=== PATIENT | male | born 1940 | race African-American/Black ===

== ENCOUNTER 2020-09-13 00:20 | Inpatient (IN) | payer MEDICARE ==
[~2020-09-13] VITALS: Ht 182.9 cm; Wt 72.6 kg
--- NOTE | 2020-09-13 02:20 | NUR ---
NURSE NOTES: Received patient from [facility] (Direct admit) under the care of Dr. Szymanski for the admitting dx. of CVA. Patient is noted NKA and full code status. Patient is tolerating RA, denies pain at this time. Will continue to monitor. Will let MD know and acquire admission orders.
[2020-09-13] MEDS ORDERED: Gadavist 7.5mMol/7.5ml vial IV PRN ×2 (03:00→15:00)
[2020-09-13 04:00] VITALS: BP 157/94
--- NOTE | 2020-09-13 05:00 | NUR ---
NURSE NOTES: Patient woke up verbalizing (with difficulty of expression) that he needed to use the bathroom to void. Assisted to use the urinal. Patient then went back to sleep. Will continue to monitor.
[2020-09-13] MEDS ORDERED: HydrALAZINE 10mg Tab ORAL PRN (05:30)
--- NOTE | 2020-09-13 07:15 | NUR ---
NURSE HAND-OFF REPORT: Important Events on Shift: Admitted to Unit Patient Status: Stable Diet: No added salt Pending Orders: Pending Results/Labs: Pending MD notification: Latest Vital Signs: Temperature 98.1 , Pulse 99 , B/P 157 /94 , Respiratory Rate 20 , O2 SAT 97 , , O2 Flow Rate . Vital Sign Comment: WNL EKG Rhythm: SR c 1st degree AVB Rhythm change?: N MD Notified?: - MD Response: Latest Porter Fall Score: 35 Fall Risk: Medium Risk Safety Measures: Call light Within Reach, Bed Alarm Zone 1, Side Rails Side Rails x3, Bed position Low and Locked. Fall Precautions: Yellow Socks Report given to DAILY Thurman.
[2020-09-13 08:00] VITALS: BP 117/66
[2020-09-13] MEDS: Aspirin Baby 81mg ORAL SCH (09:01)
[2020-09-13 12:00] VITALS: BP 162/82
[2020-09-13] MEDS: Vitamin D 1000 units Tab ORAL SCH (12:18)
--- NOTE | 2020-09-13 13:10 | NUR ---
PT NOTE Received MD order for PT evaluation. Attempted to see patient for PT however patient declining to participate, telling therapist "Go, I can do for myself." Olman AMBROSIO aware, present in patient's room. Will follow up tomorrow.
--- NOTE | 2020-09-13 13:35 | NUR ---
0730: Received from DAILY Dixon. Pt awake in bed at this time. Pt attempted to get out of bed to use bathroom. Pt redirected to lay in bed and was given urinal. Pt able to lift extremities. Pt not able to touch nose to finger. Pt also with trouble picking up items. Pt only oriented to person. Pt on RA. Bed in lowest position. Bed alarm on. Side rail x3. Call corrigan within reach. Will continue to monitor. 0800: ECHO being done at this time. 0900: Duplex being done at this time. 0930: nailhead puncher on the phone with Dr. Szymanski and instructed her to discuss that on transfer papers it stated pt was on Keppra and other meds. Awaiting orders at this time. 1050: Pt taken to MRI. 1200: Pt returned from MRI. Family updated. Pt given lunch. Pt assisted in using urinal. 1300: Pt refusing to do PT at this time. Telling PT to get out of room and he can "do for myself."
--- NOTE | 2020-09-13 13:44 | Diagnostic Imaging Report ---
Indication: Difficulty speaking, dementia Technique: sagittal T1 fast spin echo, axial T1 and T2 FLAIR PROPELLER, axial T2 FS PROPELLER, T2* GRE, axial diffusion weighted images, post contrast axial and coronal T1 FLAIR PROPELLER images. ADC and exponential ADC maps generated Comparison: Findings: . No abnormal areas of restricted diffusion to suggest acute infarction. No acute hemorrhage or edema. No mass effect nor midline shift. No abnormal contrast enhancement. There is age-related enlargement of the ventricles and extra axial CSF spaces. There is considerable high T2 signal in the periventricular deep white matter, likely on the basis of chronic microvascular ischemic change there is evidence of ethmoid and left maxillary sinus disease. Visualized orbits and sinuses are unremarkable. . Impression: Chronic and age-related changes Negative for acute intracranial bleed, mass effect, or contrast enhancing lesion
--- NOTE | 2020-09-13 13:53 | Diagnostic Imaging Report ---
Indication: Difficulty speaking, dementia Technique: Grayscale and duplex images of the bilateral extracranial carotid and vertebral arteries Comparison: none Findings: Bilaterally, grayscale and duplex images demonstrate hard and soft atherosclerotic plaquing resulting in less than 50% diameter narrowing. Normal Doppler flow velocities and waveforms. Patent bilateral vertebral arteries, antegrade flow note that the left subclavian artery could not be visualized Impression: Less than 50% diameter stenosis bilaterally
--- NOTE | 2020-09-13 14:37 | Consultation ---
Consult Note Consult Note Neurology Consultation Date of Consultation: 09/13/2020 Malathi MD: Dr Szymanski Reason For Referral: CVA HPI: This is a pleasant 80 year old AA Male patient transferred from an outside facility. He has PMH of CVA, Subdural hematoma s/p craniotomy in 2016, he was following a neurologist in [facility]. I called the daughter to obtain the information and reviewed the chart. His daughter Sheila states that she began to notice that he was having trouble speaking the 'right" words and was not making sense. We were consulted for concern of CVA, a CT head was done prior to arrival revealed white matter disease and a MRI brain was done here revealed no acute cva or hemorrhage. Past medical history: HLD, HTN, subdural hematoma, rectal bleeding. Past Surgical History: Colonoscopy, EGD, Craniotomy, Family History: Non contributory Socail history: No smoking tobacco, no alcohol and no drus use. ROS difficult to assess PE: General: Pt is sitting in bed no acute distress VS reviewed Neuro: The patient is awake Alert not able to tell me his name or place Comprehension is not intact, however he has the ability to follow some commands PERRLA, No facial droop, unable to stick his tongue out not able to follow some instructions Hearing is intact, He is able to follow instructions when asked to squeeze my hands and lift his extremities. Upper Bilat extremity Strength 2/10, Lower bilat lower extremity strenght is 2/10 Sensation difficult to do exam as patient is unable to tell me Gait not tested, no involuntary movements Lab: Reviewed in chart from prior outside hospital Imaging: MRI Brain reviewed Assessment and Diagnosis: 1. TIA --> MRI done does not show acute CVA --> Will order MRA head and neck --> continue ASA 81mg po daily --> discuss with daughter to see if he has been at baseline --> ST, PT, OT 2. History of Craniotomy for subdural hematoma --> was on keppra has been off keppra for 2 yrs. 3. HLD Thank you for allowing to us to participate in patients care plan of care was discussed with Dr. Alexei Phelps. Jie Aldrich NP Sep 13, 2020 14:37
[2020-09-13] MEDS ORDERED: Varibar Pudding 230ml MC PRN (15:30)
[2020-09-13] MEDS ORDERED: Varibar Thin Liquid powder 148gm MC PRN (15:30)
[2020-09-13] MEDS ORDERED: Varibar Honey 250ml MC PRN (15:30)
[2020-09-13] MEDS ORDERED: Varibar Nectar 240ml MC PRN (15:30)
[2020-09-13 16:00] VITALS: BP_SYST 163; BP_SYST 173; BP_DIAS 84; BP_DIAS 86
[2020-09-13] MEDS ORDERED: D5NS 1000ml IV ONE (16:07)
[2020-09-13 18:19] LABS: BASOPHILS % (AUTO) 0.8 % (0.0-2.0); EOSINOPHILS % (AUTO) 2.7 % (0.0-3.0); HEMOGLOBIN 14.3 G/DL (14.2-18.0); LYMPHOCYTES % (AUTO) 14.6 % (20.0-45.0); MEAN CORPUSCULAR VOLUME 89 FL (80-99); MONOCYTES % (AUTO) 9.3 % (1.0-10.0); NEUTROPHILS % (AUTO) 72.6 % (45.0-75.0); PLATELET COUNT 268 K/UL (150-450); RED BLOOD COUNT 4.93 M/UL (4.70-6.10); RED CELL DISTRIBUTION WIDTH 13.7 % (11.6-14.8)
--- NOTE | 2020-09-13 18:28 | NUR ---
Brief Note (Speech/Cognitive and Dysphagia Evaluation) Onset of Stroke Symptoms (09/12/2020 around 19:30 per daughter) Arrival ED at [place]: 21:58 Method of Arrival: Called 911 BIBA On Arrival: Pulse 108, Temp: 98.1, BP: 145/72 (R arm cuff), RR 18. SPO2 BMI: 20 EKG NSR 98 CBC: 12.8/12.6/38.3/234 Coa.2/1.0 Electrolytes 129/4.1/93/24/9/ /102 CT head: Negative, left craniotomy burhole Carotid: less than 50% stenosis bilaterally NIHSS: 1 Mr. Draper is a 80 year old male transferred from [place] [facility] to [facility] yesterday for new onset of stroke symptoms in setting of history of SDH s.p craniotomy in 2016. So far, Imaging study including MRI of brain, and CT head were unremarkable for acute pathologies. The MRA of brain and neck is pending. Findings (Cognitive/Speech): Mr. Draper is alert, and oriented x 1. He is severely confused. He was unable to follow commands consistently. His speech is mildly dysarthric and at a time of paraphasia. His voice is intact. His insights and safety awareness is severely impaired. Findings of Swallow: He stated he was hungry. When I tried to assist feed him he declined with confusion by stating " No. No ". But he tried to eat by himself. He was unable to self feed due to poor cognition. When I observed him drinking thin liquid and pudding, he tolerated without overt s.s of aspiration Interpretation: 1. Reduced cognitive function with poor insights and poor safety awareness 2. Functional Swallow Plan: 1. Continued with neurodiagnostic procedure 2. Po diet with pureed and thin liquid Supportive care. Follow up status next week Malcom Ortiz
[2020-09-13 18:37] LABS: ANION GAP 10 mmol/L (5-15); BLOOD UREA NITROGEN 8 mg/dL (7-18); CALCIUM 8.9 MG/DL (8.5-10.1); CARBON DIOXIDE 25 MMOL/L (21-32); CHLORIDE 92 MMOL/L (98-107); CREATININE 0.9 MG/DL (0.55-1.30); POTASSIUM 3.8 MMOL/L (3.5-5.1); SODIUM 127 MMOL/L (136-145)
--- NOTE | 2020-09-13 19:15 | NUR ---
NURSE NOTES: Received patient from [facility] RN under the care of Dr. Szymanski for the admitting dx of CVA. Noted NKA and full code status. Standard isolation observed and maintained at all times. Patient noted to be alert and oriented x1-2 with periods of confusion and disorientation. Tolerating room air well with no acute distress noted at this time. Will continue to monitor.
[2020-09-13] MEDS: Tamsulosin 0.4mg cap ORAL SCH (21:08)
--- NOTE | 2020-09-13 21:30 | NUR ---
NURSE NOTES: EEG not performed as patient is non-compliant. Reorientation and distraction methods given but ineffective. Report from technology risk intern filed in chart. Patient went back to sleep after due meds. Will continue to monitor.
--- NOTE | 2020-09-14 00:29 | History and Physical Report ---
CARDIOVASCULAR CONSULTATION DATE OF CONSULTATION: 09/13/2020 REASON FOR CONSULTATION: Acute-onset aphasia. REQUESTING PHYSICIAN: Conrado Pemberton M.D. HISTORY OF PRESENT ILLNESS: This is an 80-year-old male with prior history of craniotomy due to subdural hematoma. He was seen in my office actually yesterday for a routine followup and was without any acute neurologic deficits. Later that afternoon, his daughter and noted him to have progressive speech deficits described as expressive. Progression prompted them to call 911. He was taken to the [facility] and had a CT scan of the brain that revealed diffuse white matter disease, but no acute process. He was transferred here for continued workup and further care. The patient has not had any falls, headaches, or noted seizure activity. He has been compliant with medications. He has not had any fevers, chills, cough, sputum production, nausea, vomiting, or diarrhea. PAST MEDICAL HISTORY: Hypertension, hyperlipidemia, prostatic hypertrophy, history of craniotomy for a subdural hematoma, distant history of seizures, history of rectal bleeding due to hemorrhoids and diverticular disease, vitamin D deficiency. ALLERGIES: None known. MEDICATIONS: Reviewed and reconciled. FAMILY HISTORY: Noncontributory. SOCIAL HISTORY: No active smoking, alcohol, or substance abuse. REVIEW OF SYSTEMS: No known COVID-19 exposures. No loss of vision or hearing. No chest pain or shortness of breath. Outpatient echocardiogram revealed mild degenerative valve disease and normal ejection fraction. There is a history of atrial ectopy, but no sustained atrial arrhythmias. There is no recent history of bronchospasm, shortness of breath, or abnormal blood clotting. There has not been any complaint of difficulty voiding. No change in bowel habits. There is no history of diabetes or thyroid disorder. PHYSICAL EXAMINATION: VITAL SIGNS: Blood pressure 157/94, heart rate 99, respiratory rate 20, afebrile. Monitored rhythm, sinus arrhythmia. Oxygen saturation on room air 95% to 97%. HEENT: Healed craniotomy scar. Conjunctivae pink. Oropharynx clear. NECK: Supple. Jugular venous pressure normal. LUNGS: Clear. CARDIAC: Regular rhythm and rate. Normal S1, S2. A 1/4 diastolic decrescendo. ABDOMEN: Soft, nontender. EXTREMITIES: No edema. NEUROLOGIC: Reveals expressive aphasia. No motor deficits. The patient is able to follow most simple commands. DIAGNOSTIC DATA: MRI of the brain revealed no acute abnormality. LABORATORY DATA: Notable for sodium 127, potassium 3.8, chloride 92, bicarb 25, BUN 8, creatinine 0.9. White count 12, hemoglobin 14. IMPRESSION: Acute-onset aphasia, no radiographic evidence of acute cerebrovascular event; history of subdural hematoma and craniotomy in 2016; hyponatremia; hypochloremia. PLAN: Saline hydration. Neuro-checks. Cardiac monitoring. Anti-platelet therapy. Anti-lipid therapy. Physical, occupational, and speech therapy assessments. Neurology consultation. Follow up lab studies and metabolic profile. Giacomo Szymanski M.D. DR: Kayley JOB#: [id number] CC: SIENNA
[2020-09-14 04:00] VITALS: BP 140/76
--- NOTE | 2020-09-14 06:58 | NUR ---
CASE MANAGEMENT:REVIEW TRANSFER FROM [facility] PMH: CRANIOTOMY D/T SUBDURAL HEMATOMA CC: PROGRESSIVE SPEECH DEFICITS SI: ACUTE -ONSET APHASIA 98.0 100 20 140/76 98% ON RA WBC+12.0 NA-127 IS: IVF+KCL @ 100/HR ASA PO QD VIT D PO QD PRAVACHOL PO QHS FLOMAX PO QHS : TO STEP DOWN UNIT DCP: PATIENT IS FROM HOME PLAN: NEURO CHECKS Q4HRS 2DECHO ST EVALUATION CAROTID DUPLEX PT EVAL EEG MRA NECK AND HEAD
--- NOTE | 2020-09-14 07:15 | NUR ---
NURSE HAND-OFF REPORT: Important Events on Shift: Failed EEG Patient Status: Stable Diet: no added salt Pending Orders: Pending Results/Labs: Pending MD notification: Latest Vital Signs: Temperature 98.0 , Pulse 102 , B/P 140 /76 , Respiratory Rate 20 , O2 SAT 98 , , O2 Flow Rate . Vital Sign Comment: EKG Rhythm: ST w/ 1st degree AVB Rhythm change?: N MD Notified?: - MD Response: Latest Porter Fall Score: 35 Fall Risk: Medium Risk Safety Measures: Call light Within Reach, Bed Alarm Zone 2, Side Rails Side Rails x3, Bed position Low and Locked. Fall Precautions: Yellow Socks Yellow Gown Door Sign Patient Fall Education Report given to DAILY Hutton.
[2020-09-14 07:20] LABS: BASOPHILS % (AUTO) 0.6 % (0.0-2.0); EOSINOPHILS % (AUTO) 2.5 % (0.0-3.0); HEMATOCRIT 45.4 % (42.0-52.0); HEMOGLOBIN 14.5 G/DL (14.2-18.0); LYMPHOCYTES % (AUTO) 12.1 % (20.0-45.0); MEAN CORPUSCULAR VOLUME 88 FL (80-99); MONOCYTES % (AUTO) 10.7 % (1.0-10.0); NEUTROPHILS % (AUTO) 74.1 % (45.0-75.0); PLATELET COUNT 264 K/UL (150-450); RED BLOOD COUNT 5.14 M/UL (4.70-6.10); RED CELL DISTRIBUTION WIDTH 12.8 % (11.6-14.8); WHITE BLOOD COUNT 11.6 K/UL (4.8-10.8)
--- NOTE | 2020-09-14 07:30 | NUR ---
NURSE NOTES: Received report from DAILY Dixon. Pt is awake, confused, not in acute distress, on room air. Sinus Tachy in the library monitor. VSS. R hand IV is intact and patent. L hand is edematous from previous IV. Recent labs, medication and MD orders reviewed. Bed is locked and in lowest position, bed alarm on, call light is with the pt. Will continue to closely monitor pt. Will continue with the plan of care.
[2020-09-14 07:33] LABS: ALANINE AMINOTRANSFERASE 16 U/L (12-78); ALBUMIN 3.2 G/DL (3.4-5.0); ALBUMIN/GLOBULIN RATIO 0.7 (1.0-2.7); ALKALINE PHOSPHATASE 57 U/L (46-116); ANION GAP 7 mmol/L (5-15); ASPARTATE AMINO TRANSFERASE 25 U/L (15-37); BILIRUBIN,TOTAL 0.8 MG/DL (0.2-1.0); BLOOD UREA NITROGEN 8 mg/dL (7-18); CALCIUM 8.8 MG/DL (8.5-10.1); CARBON DIOXIDE 27 MMOL/L (21-32); CHLORIDE 94 MMOL/L (98-107); POTASSIUM 4.3 MMOL/L (3.5-5.1); SODIUM 128 MMOL/L (136-145)
[2020-09-14 08:00] VITALS: BP 118/77
[2020-09-14] MEDS: Aspirin Baby 81mg ORAL SCH (08:37)
[2020-09-14] MEDS: Vitamin D 1000 units Tab ORAL SCH (08:37)
--- NOTE | 2020-09-14 09:19 | Diagnostic Imaging Report ---
EXAM: XR Chest, 1 View CLINICAL HISTORY: AMS TECHNIQUE: Frontal view of the chest. COMPARISON: No relevant prior studies available. FINDINGS/IMPRESSION: Small bilateral pleural effusions. Mild vascular congestion. No pneumothorax. Cardiomegaly. Calcified, tortuous aorta. Degenerative changes of the spine.
--- NOTE | 2020-09-14 09:34 | NUR ---
RADIOLOGY DEPT., CHEST X-RAY DONE.-P.DYE
--- NOTE | 2020-09-14 10:00 | NUR ---
NURSE NOTES: Initial assessment done. Morning medications administered per order. Pt is turned and repositioned. Pt is confused. Bed padded. Will continue to closely monitor pt.
[2020-09-14] MEDS ORDERED: LORazepam Inj 2mg/ml 1ml IV PRN (10:15)
[2020-09-14 12:00] VITALS: BP 152/96
--- NOTE | 2020-09-14 13:50 | NUR ---
NURSE NOTES: Pt went down of MRA of brain without contrast and MRA of neck with contrast. Consent telephone signed by daughter. Will continue with the plan of care.
[2020-09-14 16:00] VITALS: BP 159/94
--- NOTE | 2020-09-14 16:02 | Diagnostic Imaging Report ---
EXAM: MR Angiography Head Without Intravenous Contrast CLINICAL HISTORY: CVA TECHNIQUE: Magnetic resonance angiography images of the head without intravenous contrast. COMPARISON: MRA neck obtained concurrently. Carotid duplex ultrasound study dated 09/13/20 FINDINGS: Limitations: Exam degraded by motion artifact, with poor visualization of the distal M2 and M3 branches of bilateral MCAs. Right internal carotid artery: Intracranial segment is patent with no significant stenosis. No aneurysm. Right anterior cerebral artery: Unremarkable. No occlusion or significant stenosis. No aneurysm. Right middle cerebral artery: M1 segment is widely patent. M2 and M3 segments not well seen due to motion artifact. Right posterior cerebral artery: Unremarkable. No occlusion or significant stenosis. No aneurysm. Right vertebral artery: Unremarkable as visualized. Left internal carotid artery: Intracranial segment is patent with no significant stenosis. No aneurysm. Left anterior cerebral artery: Unremarkable. No occlusion or significant stenosis. No aneurysm. Left middle cerebral artery: M1 segment is widely patent. M2 and M3 segments not well seen due to motion artifact.. Left posterior cerebral artery: Unremarkable. No occlusion or significant stenosis. No aneurysm. Left vertebral artery: Hypoplastic distal left vertebral artery. Basilar artery: Unremarkable. No occlusion or significant stenosis. No aneurysm. IMPRESSION: 1. Exam degraded by motion artifact, with poor visualization of the distal M2 and M3 branches of bilateral MCAs. 2. Otherwise no evidence of intracranial large vessel occlusion, significant stenosis, or aneurysm. 3. Hypoplastic distal left vertebral artery.
--- NOTE | 2020-09-14 16:06 | Diagnostic Imaging Report ---
EXAM: MR Angiography Neck With Intravenous Contrast CLINICAL HISTORY: CVA TECHNIQUE: Magnetic resonance angiography images of the neck with intravenous contrast. COMPARISON: MRA of the head obtained the same date. Carotid duplex ultrasound dated 09/13/20. FINDINGS: Right common carotid artery: Unremarkable. No significant stenosis. No dissection or occlusion. Right internal carotid artery: Moderate stenosis at the origin of the right ICA, likely related to atherosclerotic plaque. No dissection or occlusion. Right external carotid artery: Unremarkable. No occlusion. Right vertebral artery: Unremarkable. No significant stenosis. No dissection or occlusion. Left common carotid artery: Unremarkable. No significant stenosis. No dissection or occlusion. Left internal carotid artery: Mild to moderate stenosis at the origin of the left ICA, likely related to atherosclerotic plaque. No dissection or occlusion. Left external carotid artery: Unremarkable. No occlusion. Left vertebral artery: Hypoplastic distal left vertebral artery. No significant stenosis. No dissection or occlusion. Soft tissues: Unremarkable as visualized. CAROTID STENOSIS REFERENCE USING NASCET CRITERIA: % ICA stenosis = (1 - narrowest ICA diameter/diameter of distal cervical ICA) x 100. Mild - <50% stenosis. Moderate - 50-69% stenosis. Severe - 70-94% stenosis. Near occlusion - 95-99% stenosis. Occluded - 100% stenosis. IMPRESSION: 1. Moderate stenosis at the origin of the right ICA, likely related to atherosclerotic plaque. 2. Mild to moderate stenosis at the origin of the left ICA, likely related to atherosclerotic plaque. 3. Hypoplastic distal left vertebral artery.
--- NOTE | 2020-09-14 17:12 | NUR ---
PT Note PT eval completed, treatment initiated. Patient is confused but able to follow simple instructions x 40%. Patient is noted to grimace during hip movements, specially on the right. RN was notified and advised to request X-rya of the right hip. Patient can benefit from PT services to increase his muscle strength and balance to improve his functional mobility and gait. Addendum: 09/14/20 at 1719 by LT MARTÍNEZ PT Amended: Links added.
[2020-09-14] MEDS ORDERED: NaCl 3% 500ml 250 ML IV ONE (17:30)
--- NOTE | 2020-09-14 19:20 | NUR ---
NURSE HAND-OFF REPORT: Important Events on Shift:None Patient Status: full code Diet: Low sodium Pending Orders: none Pending Results/Labs:none Pending MD notification:none Latest Vital Signs: Temperature 98.2 , Pulse 105 , B/P 159 /94 , Respiratory Rate 20 , O2 SAT 96 , , O2 Flow Rate . Vital Sign Comment: stable EKG Rhythm: ST w/ 1st degree AVB Rhythm change?: N MD Notified?: - MD Response: Latest Porter Fall Score: 35 Fall Risk: Medium Risk Safety Measures: Call light Within Reach, Bed Alarm Zone 2, Side Rails Side Rails x3, Bed position Low and Locked. Fall Precautions: Yellow Socks Yellow Gown Door Sign Patient Fall Education Report given to DAILY Alvarado.
--- NOTE | 2020-09-14 19:40 | NUR ---
NURSE NOTES: Received report from DAILY Hutton. Pt is awake, confused, alert to name only, speech is rambling. No acute distress noted. 99% on RA, ST on residential aide. R hand 24g running 3% NA at 30cc/hr. No signs of infiltration noted. HOB elevated, call light within reach, side rails x3, bed alarmed, locked, and in lowest position. Will continue to monitor. WIll continue plan of care.
[2020-09-14 20:00] VITALS: BP 152/84
[2020-09-14] MEDS: Tamsulosin 0.4mg cap ORAL SCH (20:56)
--- NOTE | 2020-09-14 21:10 | NUR ---
NURSE NOTES: Bladder scan completed, 0ml shown after voiding. Will continue plan of care, will continue to monitor.
[2020-09-14 21:53] LABS: APPEARANCE,URINE CLEAR; BILIRUBIN, URINE NEGATIVE (NEGATIVE); COLOR,URINE PALE YELLOW; GLUCOSE, URINE (UA) NEGATIVE (NEGATIVE); KETONES,URINE 2+ (NEGATIVE); LEUKOCYTE ESTERASE ,URINE NEGATIVE (NEGATIVE); NITRITE,URINE NEGATIVE (NEGATIVE); PH,URINE 6 (4.5-8.0); PROTEIN,URINE NEGATIVE (NEGATIVE); UROBILINOGEN,URINE NORMAL MG/DL (0.0-1.0)
--- NOTE | 2020-09-14 22:00 | NUR ---
NURSE NOTES: Spoke with daughter, Sheila, and gave updates on her father's condition. R hand peripheral line infiltrated and leaking, inserted new PIV to L FA 20g. Pt was combative initially but calmed down eventually. Will continue to monitor, will continue plan of care.
--- NOTE | 2020-09-14 22:29 | History and Physical Report ---
DATE OF ADMISSION: 09/13/2020 CHIEF COMPLAINT: Altered mental status. HISTORY OF PRESENT ILLNESS: The patient is an 80-year-old male, well known to me. He has a history of atherosclerotic cardiovascular disease, allergic rhinitis, asthma, and osteoarthritis. He has a prior history of craniotomy after a subdural hematoma. He presented with complaints of confusion. According to the patient's daughter, he saw his place change roof bolter on the day of admission, went home, and was noted to be more confused. He was unable to identify people that he would normally know. He could not name objects such as a door. He was brought to the emergency room. Since then, an MRI of the brain showed no evidence of acute stroke. He was noted to be hyponatremic with a sodium of 128. urinalysis is currently pending. The patient remains confused, otherwise unable to provide any history. PAST MEDICAL HISTORY: As above. PAST SURGICAL HISTORY: As above. CURRENT MEDICATIONS: Reconciled and reviewed. ALLERGIES: None. FAMILY HISTORY: None. SOCIAL HISTORY: There is no known history of alcohol, drugs, or tobacco. REVIEW OF SYSTEMS: Unobtainable as the patient is confused. PHYSICAL EXAMINATION: VITAL SIGNS: Temperature 97.2, pulse 103, respirations 20, and blood pressure 118/77. GENERAL: The patient is well developed, in no apparent distress. He is arousable, but does not follow commands. He is mumbling. HEENT: His head is normocephalic and atraumatic. Sclerae are anicteric. Oropharynx is clear. NECK: Supple. HEART: Regular rate and rhythm. LUNGS: Clear to auscultation bilaterally. ABDOMEN: Soft, nontender, and nondistended. EXTREMITIES: Without clubbing, cyanosis, or edema. The patient moves all four extremities. LABORATORY DATA: His white count was 12, hemoglobin 14, hematocrit 44, and platelets of 268,000. Sodium 127, potassium 3.8, chloride 92, bicarbonate 25, BUN was 8, and creatinine 0.9. ASSESSMENT: This is an 80-year-old male with a history of hypertensive heart disease, osteoarthritis, allergic rhinitis, asthma, admitted with complaints of altered mental status, suspect secondary to hyponatremia. PLAN: Hypertonic saline. Check urine lytes. Neurology and Cardiology followup. Plan of care was discussed with the patient's daughter. Conrado Pemberton M.D. DR: KEMAR JOB#: [id number] CC:
[2020-09-15] VITALS: BP 134/68
--- NOTE | 2020-09-15 01:48 | Cardiology Progress Note ---
Subjective DATE OF SERVICE: Sep 14, 2020 Discussed with patient's daughter. Patient remains confused with aphasia Objective Last 24 Hour Vital Signs Date Time Temp Pulse Resp B/P (MAP) Pulse Ox O2 Delivery O2 Flow Rate FiO2 09/15/20 00:00 Room Air 09/15/20 00:00 98.2 107 17 134/68 (90) 100 09/15/20 00:00 106 09/14/20 20:00 Room Air 09/14/20 20:00 97.9 107 18 152/84 (106) 97 09/14/20 20:00 110 09/14/20 16:00 98.2 110 20 159/94 (115) 96 09/14/20 16:00 105 09/14/20 16:00 Room Air 09/14/20 13:36 98 20 118/77 97 09/14/20 12:00 97.0 102 20 152/96 (114) 97 09/14/20 12:00 Room Air 09/14/20 12:00 98 09/14/20 08:00 101 09/14/20 08:00 Room Air 09/14/20 08:00 97.2 103 20 118/77 (91) 97 09/14/20 04:00 98.0 100 20 140/76 (97) 98 09/14/20 04:00 Room Air 09/14/20 04:00 102 HEENT: normal ENT inspection RHYTHM: NSR, SB LUNGS: lungs clear bilaterally CARDIAC: normal rate, regular rhythm, normal S1 and S2 ABDOMEN: normal bowel sounds, non tender, soft EXTREMITIES: normal range of motion, No edema, other - aphasia Laboratory Tests Test 09/14/20 06:20 09/14/20 06:35 09/14/20 20:28 White Blood Count 11.6 K/UL (4.8-10.8) H Red Blood Count 5.14 M/UL (4.70-6.10) Hemoglobin 14.5 G/DL (14.2-18.0) Hematocrit 45.4 % (42.0-52.0) Mean Corpuscular Volume 88 FL (80-99) Mean Corpuscular Hemoglobin 28.3 PG (27.0-31.0) Mean Corpuscular Hemoglobin Concent 32.1 G/DL (32.0-36.0) Red Cell Distribution Width 12.8 % (11.6-14.8) Platelet Count 264 K/UL (150-450) Mean Platelet Volume 8.3 FL (6.5-10.1) Neutrophils (%) (Auto) 74.1 % (45.0-75.0) Lymphocytes (%) (Auto) 12.1 % (20.0-45.0) L Monocytes (%) (Auto) 10.7 % (1.0-10.0) H Eosinophils (%) (Auto) 2.5 % (0.0-3.0) Basophils (%) (Auto) 0.6 % (0.0-2.0) Sodium Level 128 MMOL/L (136-145) L Potassium Level 4.3 MMOL/L (3.5-5.1) Chloride Level 94 MMOL/L (98-107) L Carbon Dioxide Level 27 MMOL/L (21-32) Anion Gap 7 mmol/L (5-15) Blood Urea Nitrogen 8 mg/dL (7-18) Creatinine 1.0 MG/DL (0.55-1.30) Estimat Glomerular Filtration Rate > 60 mL/min (>60) Glucose Level 119 MG/DL (74-106) H Calcium Level 8.8 MG/DL (8.5-10.1) Total Bilirubin 0.8 MG/DL (0.2-1.0) Aspartate Amino Transf (AST/SGOT) 25 U/L (15-37) Alanine Aminotransferase (ALT/SGPT) 16 U/L (12-78) Alkaline Phosphatase 57 U/L (46-116) Total Protein 7.6 G/DL (6.4-8.2) Albumin 3.2 G/DL (3.4-5.0) L Globulin 4.4 g/dL Albumin/Globulin Ratio 0.7 (1.0-2.7) L Thyroid Stimulating Hormone (TSH) 1.543 uiU/mL (0.358-3.740) Urine Color Pale yellow Urine Appearance Clear Urine pH 6 (4.5-8.0) Urine Specific [place] 1.010 (1.005-1.035) Urine Protein Negative (NEGATIVE) Urine Glucose (UA) Negative (NEGATIVE) Urine Ketones 2+ (NEGATIVE) H Urine Blood Negative (NEGATIVE) Urine Nitrite Negative (NEGATIVE) Urine Bilirubin Negative (NEGATIVE) Urine Urobilinogen Normal MG/DL (0.0-1.0) Urine Leukocyte Esterase Negative (NEGATIVE) Urine Osmolality 690 mOsm/kg (429-449) H Urine Random Sodium > 210 mmol/L (20-110) H Assessment/Plan Assessment/Plan Possible CVA Hx craniotomy R/O seizure Hyponatremia Vitamin D def Orders updated D/W Giacomo Huerta MD Sep 15, 2020 01:48
[2020-09-15 04:00] VITALS: BP 137/75
--- NOTE | 2020-09-15 04:10 | NUR ---
NURSE NOTES: Pt is asleep, no signs of acute distress noted, no signs of pain. Respirations are regular, even, and unlabored. Will continue plan of care. WIll continue to monitor.
--- NOTE | 2020-09-15 07:34 | NUR ---
NURSE HAND-OFF REPORT: Important Events on Shift:[No acute events] Patient Status: [Stable] Diet: [CANDELARIA] Pending Orders: [NA] Pending Results/Labs:[NA] Pending MD notification:[NA] Latest Vital Signs: Temperature 97.9 , Pulse 103 , B/P 137 /75 , Respiratory Rate 16 , O2 SAT 100 , , O2 Flow Rate . Vital Sign Comment: [Stable] EKG Rhythm: SR w/ 1st degree AVB Rhythm change?: N MD Notified?: - MD Response: Latest Porter Fall Score: 35 Fall Risk: Medium Risk Safety Measures: Call light Within Reach, Bed Alarm Zone 2, Side Rails Side Rails x3, Bed position Low and Locked. Fall Precautions: Yellow Socks Yellow Gown Door Sign Patient Fall Education Report given to [DAILY Garcia].
[2020-09-15 08:00] VITALS: BP 132/70
[2020-09-15 08:28] LABS: ANION GAP 8 mmol/L (5-15); BLOOD UREA NITROGEN 8 mg/dL (7-18); CALCIUM 8.5 MG/DL (8.5-10.1); CARBON DIOXIDE 26 MMOL/L (21-32); CHLORIDE 95 MMOL/L (98-107); POTASSIUM 3.9 MMOL/L (3.5-5.1); SODIUM 129 MMOL/L (136-145)
[2020-09-15] MEDS: Aspirin Baby 81mg ORAL SCH (09:23)
[2020-09-15] MEDS: Vitamin D 1000 units Tab ORAL SCH (10:24)
--- NOTE | 2020-09-15 11:08 | General Progress Note ---
Subjective ROS Limited/Unobtainable: Yes Constitutional: Reports: malaise, weakness HEENT: Reports: no symptoms Cardiovascular: Reports: no symptoms Respiratory: Reports: no symptoms Gastrointestinal/Abdominal: Reports: no symptoms Genitourinary: Reports: no symptoms Neurologic/Psychiatric: Reports: pre-existing deficit Endocrine: Reports: no symptoms Hematologic/Lymphatic: Reports: no symptoms Allergies: Coded Allergies: No Known Allergies (Unverified , 09/13/20) All Systems: reviewed and negative except above Subjective no real change. still very confused compared to baseline. unable to name watch, keys or pen. sodium mildly improved Objective Last 24 Hour Vital Signs Date Time Temp Pulse Resp B/P (MAP) Pulse Ox O2 Delivery O2 Flow Rate FiO2 09/15/20 08:00 99 09/15/20 08:00 98.4 95 18 132/70 (90) 99 09/15/20 04:00 Room Air 09/15/20 04:00 97.9 106 16 137/75 (95) 100 09/15/20 04:00 103 09/15/20 00:00 Room Air 09/15/20 00:00 98.2 107 17 134/68 (90) 100 09/15/20 00:00 106 09/14/20 20:00 Room Air 09/14/20 20:00 97.9 107 18 152/84 (106) 97 09/14/20 20:00 110 09/14/20 16:00 98.2 110 20 159/94 (115) 96 09/14/20 16:00 105 09/14/20 16:00 Room Air 09/14/20 13:36 98 20 118/77 97 09/14/20 12:00 97.0 102 20 152/96 (114) 97 09/14/20 12:00 Room Air 09/14/20 12:00 98 Intake and Output 09/14/20 09/15/20 19:00 07:00 Intake Total 134 ml 160 ml Output Total 500 ml Balance 134 ml -340 ml Intake Oral 120 ml 160 ml IV Total 14 ml Output Urine Total 500 ml # Voids 4 2 Laboratory Tests 09/14/20 20:28: Urine Color Pale yellow, Urine Appearance Clear, Urine pH 6, Urine Specific [place] 1.010, Urine Protein Negative, Urine Glucose (UA) Negative, Urine Ketones 2+H, Urine Blood Negative, Urine Nitrite Negative, Urine Bilirubin Negative, Urine Urobilinogen Normal, Urine Leukocyte Esterase Negative, Urine Osmolality 690H, Urine Random Sodium > 210H 09/15/20 07:30: Sodium Level 129L, Potassium Level 3.9, Chloride Level 95L, Carbon Dioxide Level 26, Anion Gap 8, Blood Urea Nitrogen 8, Creatinine 1.0, Estimat Glomerular Filtration Rate > 60, Glucose Level 107H, Calcium Level 8.5 Height (Feet): 6 Weight (Pounds): 160 General Appearance: WD/WN, confused Neck: non-tender, supple Cardiovascular: normal rate, regular rhythm Respiratory/Chest: chest wall non-tender, lungs clear, normal breath sounds, no respiratory distress Abdomen: normal bowel sounds, non tender, soft, no organomegaly Edema: no edema noted Arm (L), no edema noted Arm (R) Neurologic: alert, responsive, disoriented Skin: normal pigmentation, warm/dry Assessment/Plan Problem List: (1) Toxic metabolic encephalopathy ICD Codes: G92 - Toxic encephalopathy SNOMED: 117657651 (2) Hyponatremia ICD Codes: E87.1 - Hypo-osmolality and hyponatremia SNOMED: 87838284 (3) Asthma ICD Codes: J45.909 - Unspecified asthma, uncomplicated SNOMED: 142777466 Status: stable, not improved, unchanged Assessment/Plan: hyperteonic saline x 1 repeat labs in am retry eeg dtr to try to assist. antiplt rx neuro follow up dvt/stress ulcer prophylaxis Conrado Pemberton MD Sep 15, 2020 11:08
[2020-09-15 12:00] VITALS: BP 141/72
[2020-09-15] MEDS ORDERED: NaCl 3% 500ml 500 ML IV SCH (12:00)
[2020-09-15 16:00] VITALS: BP 136/77
[2020-09-15] MEDS ORDERED: Omnipaque 350 100ml vial INJ PRN (16:00)
--- NOTE | 2020-09-15 19:27 | NUR ---
NURSE NOTES: Received report from DAILY Garcia. Pt is awake, confused, alert to name only, speech is rambling and garbled. No acute distress noted. 98% on RA, ST on threat monitoring analyst. L FA 20g intact and asymptomatic, running 3% NA at 30cc/hr. No signs of infiltration noted. HOB elevated, call light within reach, side rails x3, bed alarmed, locked, and in lowest position. Will continue to monitor. Will continue plan of care.
[2020-09-15 20:00] VITALS: BP 136/78
[2020-09-15] MEDS: Tamsulosin 0.4mg cap ORAL SCH ×2 (20:30→20:38)
--- NOTE | 2020-09-15 22:00 | Cardiology Progress Note ---
Subjective DATE OF SERVICE: Sep 15, 2020 Discussed with patient's daughter yesterday. Patient remains confused with aphasia and anomia. Carotid duplex revealed possible significant left carotid obstruction at origin. Objective Last 24 Hour Vital Signs Date Time Temp Pulse Resp B/P (MAP) Pulse Ox O2 Delivery O2 Flow Rate FiO2 09/15/20 20:00 96.8 97 18 136/78 (97) 97 09/15/20 20:00 100 09/15/20 20:00 Room Air 09/15/20 16:00 97.9 97 18 136/77 (96) 99 09/15/20 16:00 Room Air 09/15/20 16:00 100 09/15/20 12:00 102 09/15/20 12:00 Room Air 09/15/20 12:00 97.2 94 20 141/72 (95) 99 09/15/20 08:00 Room Air 09/15/20 08:00 99 09/15/20 08:00 98.4 95 18 132/70 (90) 99 09/15/20 04:00 Room Air 09/15/20 04:00 97.9 106 16 137/75 (95) 100 09/15/20 04:00 103 09/15/20 00:00 Room Air 09/15/20 00:00 98.2 107 17 134/68 (90) 100 09/15/20 00:00 106 HEENT: normal ENT inspection RHYTHM: NSR, SB LUNGS: lungs clear bilaterally CARDIAC: normal rate, regular rhythm, normal S1 and S2 ABDOMEN: normal bowel sounds, non tender, soft EXTREMITIES: normal range of motion, No edema, other - aphasia Laboratory Tests Test 09/15/20 07:30 Sodium Level 129 MMOL/L (136-145) L Potassium Level 3.9 MMOL/L (3.5-5.1) Chloride Level 95 MMOL/L (98-107) L Carbon Dioxide Level 26 MMOL/L (21-32) Anion Gap 8 mmol/L (5-15) Blood Urea Nitrogen 8 mg/dL (7-18) Creatinine 1.0 MG/DL (0.55-1.30) Estimat Glomerular Filtration Rate > 60 mL/min (>60) Glucose Level 107 MG/DL (74-106) H Calcium Level 8.5 MG/DL (8.5-10.1) Microbiology Date/Time Source Procedure Growth Status 09/14/20 20:28 Straight Cath Urine Culture - Preliminary NO GROWTH Resulted Assessment/Plan Assessment/Plan Possible CVA Hx craniotomy R/O seizure Hyponatremia Vitamin D def Carotid stenosis, bilat Orders updated D/W Dr Pemberton Neuro and vascular consults called Agree with 3% saline Maintain anti-plt and antilipid rx Giacomo Szymanski MD Sep 15, 2020 22:00
[2020-09-16] VITALS: BP 146/69
[2020-09-16 04:00] VITALS: BP 146/86
--- NOTE | 2020-09-16 04:57 | NUR ---
NURSE NOTES: Cleaned pt, changed gowns and linen. No BM noted. Condom cath replaced due to leakage. Pt seems more alert, speech is more clear and pt is able to say, "one more blanket." Will continue plan of care. Will continue to monitor.
--- NOTE | 2020-09-16 07:03 | NUR ---
NURSE HAND-OFF REPORT: Important Events on Shift:[No acute events] Patient Status: [Stable] Diet: [CANDELARIA] Pending Orders: [NA] Pending Results/Labs:[NA] Pending MD notification:[NA] Latest Vital Signs: Temperature 97.5 , Pulse 94 , B/P 146 /86 , Respiratory Rate 20 , O2 SAT 98 , , O2 Flow Rate . Vital Sign Comment: [DAILY Garcia] EKG Rhythm: SR with 1st avb Rhythm change?: N MD Notified?: - MD Response: Latest Porter Fall Score: 35 Fall Risk: Medium Risk Safety Measures: Call light Within Reach, Bed Alarm Zone 2, Side Rails Side Rails x3, Bed position Low and Locked. Fall Precautions: Yellow Socks Yellow Gown Door Sign Patient Fall Education Report given to [].
[2020-09-16 07:16] LABS: ANION GAP 6 mmol/L (5-15); BLOOD UREA NITROGEN 9 mg/dL (7-18); CALCIUM 8.6 MG/DL (8.5-10.1); CARBON DIOXIDE 28 MMOL/L (21-32); CHLORIDE 100 MMOL/L (98-107); CREATININE 0.9 MG/DL (0.55-1.30); POTASSIUM 3.8 MMOL/L (3.5-5.1); SODIUM 134 MMOL/L (136-145)
[2020-09-16 08:27] VITALS: BP 141/78
[2020-09-16] MEDS: Vitamin D 1000 units Tab ORAL SCH (09:19)
[2020-09-16] MEDS: Aspirin Baby 81mg ORAL SCH (09:19)
--- NOTE | 2020-09-16 11:11 | Diagnostic Imaging Report ---
Indication: Aphasia, bilateral carotid stenosis on MRA Technique: CT angiography of the neck performed with bolus contrast injection. Continuous helical scanning was obtained. Maximum intensity projections were obtained. These were obtained on the CT scanner. Dose: Total Dose Length Product - DLP [address] Dose Index - CTDIvol(s) 57.60 mGy. Automated exposure control was utilized for dose reduction. Comparison: None Findings: Study is not of optimal quality. Calcification is noted in the ascending thoracic aorta and aortic arch. Descending thoracic aorta is aneurysmal measuring 4.5 cm. The right brachiocephalic artery appears normal. Right common carotid artery is normal. Calcification is noted in the right carotid bifurcation. There is narrowing of the internal carotid artery at its origin approximately 50%. Left common carotid artery origin is obscured. Left common carotid artery itself appears normal in caliber. Dense calcified plaquing is noted in the origin of the left internal carotid artery. Narrowing of the internal carotid artery is difficult to exactly determine but it appears greater than 70%. The right vertebral artery is normal. Left vertebral artery is not identified and presumably is occluded. Severe degenerative changes are noted in the cervical spine. Anterolisthesis of C3 on C4 is noted as well as C4 and C5 with marked narrowing of the disks from C3 through T1. Severe degenerative facet disease is also noted. There is reversal of the normal lordosis C4-5. There is also minimal fluid in left maxillary sinus. Impression: Severe degenerative change in the cervical spine. Bursal the normal lordosis at C4-5. 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 Narrowing of the right internal carotid artery probably proximally 50%. Narrowing of the left internal carotid artery at its origin probably greater than 70%. Minimal fluid in left maxillary sinus. The CT scanner at [facility] is accredited by the [employer] [place] and the scans are performed using protocols designed to limit radiation exposure to as low as reasonably achievable to attain images of sufficient resolution adequate for diagnostic evaluation.
[2020-09-16 12:00] VITALS: BP 160/84
--- NOTE | 2020-09-16 12:36 | Neurology Progress Note ---
Interim History Interim History ROS Limited/Unobtainable: Yes Events: pt resting no seizure Objective Physical Exam Last Vital Signs Date Time Temp Pulse Resp B/P (MAP) Pulse Ox O2 Delivery O2 Flow Rate FiO2 09/16/20 12:00 97.3 94 20 160/84 (109) 98 09/16/20 12:00 Room Air Laboratory Tests Test 09/16/20 04:10 Sodium Level 134 MMOL/L (136-145) L Potassium Level 3.8 MMOL/L (3.5-5.1) Chloride Level 100 MMOL/L (98-107) Carbon Dioxide Level 28 MMOL/L (21-32) Anion Gap 6 mmol/L (5-15) Blood Urea Nitrogen 9 mg/dL (7-18) Creatinine 0.9 MG/DL (0.55-1.30) Estimat Glomerular Filtration Rate > 60 mL/min (>60) Glucose Level 68 MG/DL (74-106) L Calcium Level 8.6 MG/DL (8.5-10.1) Neurologic Exam Objective ROS difficult to assess PE: General: Pt is sitting in bed no acute distress VS reviewed Neuro: The patient is awake Alert not able to tell me his name or place Comprehension is not intact, however he has the ability to follow some commands PERRLA, No facial droop, unable to stick his tongue out not able to follow some instructions Hearing is intact, He is able to follow instructions when asked to squeeze my hands and lift his extremities. Upper Bilat extremity Strength 2/10, Lower bilat lower extremity strenght is 2/10 Sensation difficult to do exam as patient is unable to tell me Gait not tested, no involuntary movements Impression/Recommendations Status: stable, not improved, unchanged Diagnostic Impression Lab: Reviewed in chart from prior outside hospital Imaging: MRI Brain reviewed Assessment and Diagnosis: 1. 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 Narrowing of the right internal carotid artery probably proximally 50%. Narrowing of the left internal carotid artery at its origin probably greater than 70%. --. will review outpatient [facility] Neuro records and further rec's to be made at this time. 2. TIA --> MRI done does not show acute CVA --> MRA head and neck reviewed ordered CTA neck based on findings. --> continue ASA 81mg po daily --> have discuss with daughter, plan of care was reviewed --> ST, PT, OT 3. History of Craniotomy for subdural hematoma --> was on keppra has been off keppra for 2 yrs. 4. HLD Thank you for allowing to us to participate in patients care plan of care was discussed with Dr. Alexei Phelps. Jie Aldrich NP, Nidhi NP Sep 16, 2020 12:36
--- NOTE | 2020-09-16 12:43 | NUR ---
DENTAL CERAMIST ASSISTANTHAWK MISSILE SYSTEM CREWMEMBER SI: ACUTE APHASIA T 97.3 BP 160/84 HR 94 RR 20 O2 SAT 98%RA WBC-11.6 NA-134 BILATERAL CAROTID DUPLEX: LESS THAN 50% DIAMETER STENOSIS BILATERALLY IS: ASA PO FLOMAX PO VITAMIN D PO PRAVACHOL PO PT/ST EEG DCP: HOME SDU STATUS
--- NOTE | 2020-09-16 13:20 | NUR ---
RD ASSESSMENT & RECOMMENDATIONS SEE CARE ACTIVITY FOR COMPLETE ASSESSMENT DAILY ESTIMATED NEEDS: Needs based on cardiac, 72.5kg 25-30 kcals/kg 4881-1477 total kcals 1-1.3 g protein/kg 73-94 g total protein 25-30 mL/kg 9669-9457 total fluid mLs NUTRITION DIAGNOSIS: Swallowing difficulty R/T dysphagia, h/o craniotomy, decreased cognitive fxn as evidenced by CHERRY PITTER recommends pureed moist texture w/ thin liquids at this time. CURRENT DIET:CANDELARIA/ pureed moist with thin liquids PO DIET RECOMMENDATIONS: Maintain CANDELARIA + texture per CHERRY PITTER ADDITIONAL RECOMMENDATIONS: * Calibrated bedscale wt * Monitor for hypoglycemia, consider accuchecks for close BG monitoring monitor need for added D5 IVF. * Ensure Enlive BID with fair/variable intake * Monitor for Na trend: improving
[2020-09-16 16:00] VITALS: BP 143/69
--- NOTE | 2020-09-16 16:50 | General Progress Note ---
Subjective ROS Limited/Unobtainable: Yes Constitutional: Reports: malaise, weakness HEENT: Reports: no symptoms Cardiovascular: Reports: no symptoms Respiratory: Reports: no symptoms Gastrointestinal/Abdominal: Reports: no symptoms Genitourinary: Reports: no symptoms Neurologic/Psychiatric: Reports: pre-existing deficit Endocrine: Reports: no symptoms Hematologic/Lymphatic: Reports: no symptoms Allergies: Coded Allergies: No Known Allergies (Unverified , 09/13/20) All Systems: reviewed and negative except above Subjective There have been no significant overnight events. Patient is less confused and more appropriate. Name objects such as pen and keys-he was unable to name these things yesterday. No reports of seizures. CT noted Objective Last 24 Hour Vital Signs Date Time Temp Pulse Resp B/P (MAP) Pulse Ox O2 Delivery O2 Flow Rate FiO2 09/16/20 12:00 97.3 94 20 160/84 (109) 98 09/16/20 12:00 94 09/16/20 12:00 Room Air 09/16/20 08:27 97.7 108 20 141/78 (99) 98 09/16/20 08:05 Room Air 09/16/20 08:00 96 09/16/20 04:00 97.5 94 20 146/86 (106) 98 09/16/20 04:00 Room Air 09/16/20 03:40 93 09/16/20 00:00 97.7 92 18 146/69 (94) 99 09/16/20 00:00 Room Air 09/16/20 00:00 89 09/15/20 20:00 96.8 97 18 136/78 (97) 97 09/15/20 20:00 100 09/15/20 20:00 Room Air Intake and Output 09/15/20 09/16/20 19:00 07:00 Intake Total 540 ml 30 ml Output Total 350 ml 200 ml Balance 190 ml -170 ml Intake Oral 360 ml 0 ml IV Total 180 ml 30 ml Output Urine Total 350 ml 200 ml # Voids 1 Laboratory Tests 09/16/20 04:10: Sodium Level 134L, Potassium Level 3.8, Chloride Level 100, Carbon Dioxide Level 28, Anion Gap 6, Blood Urea Nitrogen 9, Creatinine 0.9, Estimat Glomerular Filtration Rate > 60, Glucose Level 68L, Calcium Level 8.6 Height (Feet): 6 Weight (Pounds): 160 Objective General Appearance: WD/WN, confused Neck: non-tender, supple Cardiovascular: normal rate, regular rhythm Respiratory/Chest: chest wall non-tender, lungs clear, normal breath sounds, no respiratory distress Abdomen: normal bowel sounds, non tender, soft, no organomegaly Edema: no edema noted Arm (L), no edema noted Arm (R) Neurologic: alert, responsive, disoriented Skin: normal pigmentation, warm/dry Assessment/Plan Problem List: (1) Toxic metabolic encephalopathy ICD Codes: G92 - Toxic encephalopathy SNOMED: 634297002 (2) Hyponatremia ICD Codes: E87.1 - Hypo-osmolality and hyponatremia SNOMED: 04746920 (3) Asthma ICD Codes: J45.909 - Unspecified asthma, uncomplicated SNOMED: 362359058 Status: stable, not improved, unchanged Assessment/Plan: Continue antiplatelet treatment Monitor sodium level PT OT DVT and stress ulcer prophylaxis Statin treatment No EEG needed per neurology Discussed with daughter who agrees that patient is improved but is still not at baseline We will continue to monitor for improvement Consider outpatient vascular eval Conrado Pemberton MD Sep 16, 2020 16:50
--- NOTE | 2020-09-16 19:15 | NUR ---
NURSE NOTES: Received report from DAILY Garcia. Pt is awake, alert to name only.Respirations even and unlabored. In no apparent distress noted. Saturating 98% on RA, SR on compliance monitor. HOB on semi-washington position, call light within reach, side rails up X3, bed alarm engaged and locked in lowest position
[2020-09-16 20:00] VITALS: BP 131/63
[2020-09-16] MEDS: Tamsulosin 0.4mg cap ORAL SCH (21:07)
[2020-09-17] VITALS: BP 143/78
--- NOTE | 2020-09-17 | NUR ---
NURSE NOTES: Sleeping. Easily awaked to verbal stimuli. VSS. afebrile. SR on rollway worker. No distress noted.
[2020-09-17 04:00] VITALS: BP 130/71
--- NOTE | 2020-09-17 04:00 | NUR ---
NURSE NOTES: Sleeping. Easily awaked to verbal stimuli. Respiratione even and unlabored. VSS. afebrile. SR on compliance monitor. No distress noted.
[2020-09-17 05:50] LABS: ANION GAP 8 mmol/L (5-15); BLOOD UREA NITROGEN 9 mg/dL (7-18); CARBON DIOXIDE 28 MMOL/L (21-32); CHLORIDE 98 MMOL/L (98-107); POTASSIUM 3.5 MMOL/L (3.5-5.1); SODIUM 134 MMOL/L (136-145)
[2020-09-17 08:00] VITALS: BP 122/74
[2020-09-17] MEDS: Aspirin Baby 81mg ORAL SCH (08:41)
[2020-09-17] MEDS: Vitamin D 1000 units Tab ORAL SCH (08:41)
[2020-09-17 12:00] VITALS: BP 114/69
--- NOTE | 2020-09-17 12:41 | Neurology Progress Note ---
Interim History Interim History ROS Limited/Unobtainable: Yes Events: pt is resting vss Objective Physical Exam Last Vital Signs Date Time Temp Pulse Resp B/P (MAP) Pulse Ox O2 Delivery O2 Flow Rate FiO2 09/17/20 12:00 Room Air 09/17/20 12:00 96 09/17/20 08:00 97.7 18 122/74 (90) 99 Laboratory Tests Test 09/17/20 04:50 Sodium Level 134 MMOL/L (136-145) L Potassium Level 3.5 MMOL/L (3.5-5.1) Chloride Level 98 MMOL/L (98-107) Carbon Dioxide Level 28 MMOL/L (21-32) Anion Gap 8 mmol/L (5-15) Blood Urea Nitrogen 9 mg/dL (7-18) Creatinine 1.0 MG/DL (0.55-1.30) Estimat Glomerular Filtration Rate > 60 mL/min (>60) Glucose Level 96 MG/DL (74-106) Calcium Level 9.0 MG/DL (8.5-10.1) Neurologic Exam Objective ROS difficult to assess PE: General: Pt is sitting in bed no acute distress VS reviewed Neuro: The patient is awake Alert not able to tell me his name or place Comprehension is not intact, however he has the ability to follow some commands PERRLA, No facial droop, unable to stick his tongue out not able to follow some instructions Hearing is intact, He is able to follow instructions when asked to squeeze my hands and lift his extremities. Upper Bilat extremity Strength 2/10, Lower bilat lower extremity strenght is 2/10 Sensation difficult to do exam as patient is unable to tell me Gait not tested, no involuntary movements Impression/Recommendations Status: stable, not improved, unchanged Diagnostic Impression Lab: Reviewed in chart from prior outside hospital Imaging: MRI Brain reviewed Assessment and Diagnosis: 1. 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 Narrowing of the right internal carotid artery probably proximally 50%. Narrowing of the left internal carotid artery at its origin probably greater than 70%. --.> we have reviewed outpatient [facility] Neuro records from 2015 Patient did not follow up as an outpatient with neuro --> Plan to follow up with Neurologist Dr. Henriquez and Neuro sx I have explained to daughter Sheila and she agrees with plan of care 2. TIA --> MRI done does not show acute CVA --> MRA head and neck reviewed ordered CTA neck based on findings. --> continue ASA 81mg po daily --> have discuss with daughter, plan of care was reviewed --> ST, PT, OT 3. History of Craniotomy for subdural hematoma --> was on keppra has been off keppra for 2 yrs. --> EEG pending 4. D Thank you for allowing to us to participate in patients care plan of care was discussed with Dr. Alexei Phelps. Jie Aldrich NP, Nidhi NP Sep 17, 2020 12:41
--- NOTE | 2020-09-17 15:49 | General Progress Note ---
Subjective ROS Limited/Unobtainable: No Constitutional: Reports: malaise, weakness HEENT: Reports: no symptoms Cardiovascular: Reports: no symptoms Respiratory: Reports: no symptoms Gastrointestinal/Abdominal: Reports: no symptoms Genitourinary: Reports: no symptoms Neurologic/Psychiatric: Reports: pre-existing deficit Endocrine: Reports: no symptoms Hematologic/Lymphatic: Reports: no symptoms Allergies: Coded Allergies: No Known Allergies (Unverified , 09/13/20) All Systems: reviewed and negative except above Subjective no events. confused. d/w dtr- feels pt is improving. not at baseline but better each day. no fever or chills. no sob. no cp Objective Last 24 Hour Vital Signs Date Time Temp Pulse Resp B/P (MAP) Pulse Ox O2 Delivery O2 Flow Rate FiO2 09/17/20 12:00 Room Air 09/17/20 12:00 96 09/17/20 12:00 100 18 114/69 (84) 99 09/17/20 08:00 Room Air 09/17/20 08:00 97.7 96 18 122/74 (90) 99 09/17/20 08:00 96 09/17/20 04:00 97.8 85 20 130/71 (90) 99 09/17/20 03:35 95 09/17/20 03:35 Room Air 09/17/20 00:00 Room Air 09/17/20 00:00 97.9 86 20 143/78 (99) 98 09/16/20 20:00 Room Air 09/16/20 20:00 98 09/16/20 20:00 98.4 98 20 131/63 (85) 98 09/16/20 16:00 97.5 95 20 143/69 (93) 100 09/16/20 16:00 96 09/16/20 16:00 Room Air Intake and Output 09/16/20 09/17/20 19:00 07:00 Intake Total 480 ml Output Total 1300 ml 1500 ml Balance -820 ml -1500 ml Intake Oral 480 ml Output Urine Total 1300 ml 1500 ml # Bowel Movements 1 Laboratory Tests 09/17/20 04:50: Sodium Level 134L, Potassium Level 3.5, Chloride Level 98, Carbon Dioxide Level 28, Anion Gap 8, Blood Urea Nitrogen 9, Creatinine 1.0, Estimat Glomerular Filtration Rate > 60, Glucose Level 96, Calcium Level 9.0 Height (Feet): 6 Weight (Pounds): 160 Objective General Appearance: WD/WN, confused Neck: non-tender, supple Cardiovascular: normal rate, regular rhythm Respiratory/Chest: chest wall non-tender, lungs clear, normal breath sounds, no respiratory distress Abdomen: normal bowel sounds, non tender, soft, no organomegaly Edema: no edema noted Arm (L), no edema noted Arm (R) Neurologic: alert, responsive, disoriented Skin: normal pigmentation, warm/dry Assessment/Plan Problem List: (1) Toxic metabolic encephalopathy ICD Codes: G92 - Toxic encephalopathy SNOMED: 128492970 (2) Hyponatremia ICD Codes: E87.1 - Hypo-osmolality and hyponatremia SNOMED: 43877527 (3) Asthma ICD Codes: J45.909 - Unspecified asthma, uncomplicated SNOMED: 083713857 Status: stable, not improved, unchanged Assessment/Plan: Continue antiplatelet treatment Monitor sodium level replace K PT OT DVT and stress ulcer prophylaxis Statin treatment Dtr/family requesting EEG be reordered We will continue to monitor for improvement Consider outpatient vascular eval Conrado Pemberton MD Sep 17, 2020 15:49
[2020-09-17 16:00] VITALS: BP 118/72
--- NOTE | 2020-09-17 16:39 | NUR ---
PT NOTE: Not seen for PT service today due to conflict in schedule. PT will F/U tomorrow.
--- NOTE | 2020-09-17 17:36 | Cardiology Report ---
APPROVED REPORT EXAM: Two-dimensional and M-mode echocardiogram with Doppler and color Doppler. INDICATION CVA M-Mode DIMENSIONS IVSd1.0 (0.7-1.1cm)Left Atrium (MM)2.3 (1.6-4.0cm) LVDd5.1 (3.5-5.6cm)Aortic Root3.6 (2.0-3.7cm) PWd0.9 (0.7-1.1cm)Aortic Cusp Exc.1.2 (1.5-2.0cm) IVSs1.6 cmEPSS1.2 (>1.0cm) LVDs3.4 (2.5-4.0cm) PWs1.4 cm <Conclusion> Normal left ventricular chamber size, systolic function and wall motion. Left ventricular ejection fraction estimated to be 60-65%. Mild left ventricular hypertrophy. No evidence of pericardial effusion. All other cardiac chamber sizes are within normal limits. Mild focal aortic valve sclerosis with adequate cusp excursion. Heavily thickened mitral valve leaflets Heavy mitral annulus and aortic root calcification. Normal pulmonic valve structure. Normal tricuspid valve structure. IVC at normal size with physiologic collapse. A color flow and spectral Doppler study was performed and revealed: Mild aortic regurgitation. Mild mitral regurgitation. Mitral valve area of 1.2 cm2 Peak mitral valve diastolic gradient of 22 mmHg and a mean gradient of 7 mmHg but suggestive of calcific MS Can not determine left ventricular diastolic function by mitral diastolic velocities due to arrhythmia. Trace tricuspid regurgitation. Tricuspid systolic velocities suggests peak right ventricular systolic pressure of 25 mmHg
--- NOTE | 2020-09-17 19:40 | NUR ---
NURSE NOTES: Received report from DAILY Vaughn. Pt is awake, alert to name only. Denies pain or discomfort. Respirations even and unlabored. In no apparent distress noted. Saturating 97% on RA, St at 101 on after school program coordinator. HOB on semi-washington position, call light within reach, side rails up X3, bed alarm engaged and locked in lowest position.
[2020-09-17 20:00] VITALS: BP 136/83
[2020-09-17] MEDS: Tamsulosin 0.4mg cap ORAL SCH (21:46)
--- NOTE | 2020-09-17 22:55 | NUR ---
NURSE NOTES: Remain awake. Alert but oriented to name only. Calm and cooperative. condom cath draining well of clear yellow urine. Ambulating slowly but steady in room with minimal assist. VSS afebrile. No distress noted. Bed in lowest position. Siderail up x3 Bed alarm engaged. call light within reach.
--- NOTE | 2020-09-17 23:38 | Consultation ---
Consult Note Consult Note Date of consultation: 09/16/2020 Reason for consultation: Acute aphasic episode Consult requested by: Dr. Szymanski Patient seen and examined; discussed with team. Briefly, he is an 80 y/o male who was noted to have a sudden episode of aphasia and brought to ED for evaluation. Pt's w/u reveals bilateral ICA stenoses L>R. PMHx/ROS/Hosp. course noted. Exam: NAD; AVSS; disoriented to time and place cor RRR lungs CTA abd. soft/NT/ND ext. no C/C/E neuro non-focal Labs/imaging reviewed Assessment/Plan Significant left carotid stenosis in pt with transient aphasia Patient discussed with cardio -- if cleared medically and remains neurologically stable pt may benefit from CEA. Otherwise, continue maximal medical mgmt with antiplatelets, statins, etc. DVT prophylaxis Maninder Roman MD Sep 17, 2020 23:38
[2020-09-18] VITALS (7 sets, daily range): BP systolic 129–182; BP diastolic 69–99
--- NOTE | 2020-09-18 00:08 | Cardiology Progress Note ---
Subjective DATE OF SERVICE: Sep 16, 2020 (late entry) Discussed with vascular surgeon. Patient remains confused with aphasia and anomia, but slightly improved. Carotid duplex revealed possible significant left carotid obstruction at origin. Objective Last 24 Hour Vital Signs reviewed HEENT: normal ENT inspection RHYTHM: NSR, SB LUNGS: lungs clear bilaterally CARDIAC: normal rate, regular rhythm, normal S1 and S2 ABDOMEN: normal bowel sounds, non tender, soft EXTREMITIES: normal range of motion, No edema, other - aphasia Laboratory Tests reviewed Assessment/Plan Assessment/Plan Possible CVA Hx craniotomy R/O seizure Hyponatremia Vitamin D def Carotid stenosis, bilat Orders updated D/W Dr Pemberton Neuro and vascular consults appreciated Saline replacement by IV route Carotid endarterectomy at a later date Maintain anti-plt and antilipid rx Giacomo Szymanski MD Sep 18, 2020 00:08
--- NOTE | 2020-09-18 00:15 | Cardiology Progress Note ---
Subjective DATE OF SERVICE: Sep 17, 2020 Discussed with vascular surgeon and Dr Pemberton. Patient remains confused with aphasia and anomia, but continues slow improvement. MRA revealed possible significant left and right carotid obstruction at origin. Objective Last 24 Hour Vital Signs Date Time Temp Pulse Resp B/P (MAP) Pulse Ox O2 Delivery O2 Flow Rate FiO2 09/17/20 20:00 Room Air 09/17/20 20:00 98.1 70 18 136/83 (100) 93 09/17/20 20:00 96 09/17/20 16:00 97.5 18 118/72 (87) 96 09/17/20 16:00 96 09/17/20 16:00 Room Air 09/17/20 12:00 Room Air 09/17/20 12:00 96 09/17/20 12:00 100 18 114/69 (84) 99 09/17/20 08:00 Room Air 09/17/20 08:00 97.7 96 18 122/74 (90) 99 09/17/20 08:00 96 09/17/20 04:00 97.8 85 20 130/71 (90) 99 09/17/20 03:35 95 09/17/20 03:35 Room Air HEENT: normal ENT inspection RHYTHM: NSR, SB LUNGS: lungs clear bilaterally CARDIAC: normal rate, regular rhythm, normal S1 and S2 ABDOMEN: normal bowel sounds, non tender, soft EXTREMITIES: normal range of motion, No edema, other - aphasia Laboratory Tests Test 09/17/20 04:50 Sodium Level 134 MMOL/L (136-145) L Potassium Level 3.5 MMOL/L (3.5-5.1) Chloride Level 98 MMOL/L (98-107) Carbon Dioxide Level 28 MMOL/L (21-32) Anion Gap 8 mmol/L (5-15) Blood Urea Nitrogen 9 mg/dL (7-18) Creatinine 1.0 MG/DL (0.55-1.30) Estimat Glomerular Filtration Rate > 60 mL/min (>60) Glucose Level 96 MG/DL (74-106) Calcium Level 9.0 MG/DL (8.5-10.1) Assessment/Plan Assessment/Plan Possible CVA Hx craniotomy R/O seizure Hyponatremia Vitamin D def Carotid stenosis, bilat Orders updated D/W Dr Pemberton Neuro and vascular consults appreciated Saline replacement by IV route Carotid endarterectomy at a later date Maintain anti-plt and antilipid rx Giacomo Szymanski MD Sep 18, 2020 00:15
--- NOTE | 2020-09-18 03:00 | NUR ---
NURSE NOTES: Remain awake. Alert but oriented to name only. Restless and getting out of bed. condom cath replaced and draining well of clear yellow urine. Ambulating slowly but steady in room with minimal assist. ST on cafeteria monitor at present moment. No distress noted. Bed in lowest position. Side rail up x3 Bed alarm engaged. call light within reach.
--- NOTE | 2020-09-18 06:30 | NUR ---
NURSE NOTES: Awake most of the night. VSS. Afebrile. Alert and oriented X1 Confuse but calm and cooperative. Respirations even and unlabored. Up in chair by nursing station. Denies pain or discomfort. In no apparent distress.
--- NOTE | 2020-09-18 07:30 | NUR ---
NURSE NOTES: Received patient RN Julián Chirinos,patient on bed,remain confused sitting side bed,fall risk,does not follow instructions,insist getting out bed 1000 Assisted up on chair closely watched,Daughter Sheila spoke to him on phone [phone] patient back on bed but remain insistent climbing out bed,Im in room assisting him eating lunch,confused
[2020-09-18] MEDS: Vitamin D 1000 units Tab ORAL SCH (08:57)
[2020-09-18] MEDS: Aspirin Baby 81mg ORAL SCH (08:57)
--- NOTE | 2020-09-18 10:39 | Neurology Progress Note ---
Interim History Interim History ROS Limited/Unobtainable: No Events: pt is confused and is walking out of the room reported by RN Objective Physical Exam Last Vital Signs Date Time Temp Pulse Resp B/P (MAP) Pulse Ox O2 Delivery O2 Flow Rate FiO2 09/18/20 04:00 97.5 105 20 141/69 (93) 99 09/18/20 03:40 Room Air Neurologic Exam Objective ROS difficult to assess PE: General: Pt is sitting in bed no acute distress VS reviewed Neuro: The patient is awake Alert not able to tell me his name or place Comprehension is not intact, however he has the ability to follow some commands PERRLA, No facial droop, unable to stick his tongue out not able to follow some instructions Hearing is intact, He is able to follow instructions when asked to squeeze my hands and lift his extremities. Upper Bilat extremity Strength 2/10, Lower bilat lower extremity strenght is 2/10 Sensation difficult to do exam as patient is unable to tell me Gait not tested, no involuntary movements Impression/Recommendations Status: stable, not improved, unchanged Diagnostic Impression Lab: Reviewed in chart from prior outside hospital Imaging: MRI Brain reviewed, CTA neck Reviewed Assessment and Diagnosis: 1. 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 Narrowing of the right internal carotid artery probably proximally 50%. Narrowing of the left internal carotid artery at its origin probably greater than 70%. --.> we have reviewed outpatient [facility] Neuro records from 2016 Patient did not follow up as an outpatient with neuro since then according to Sheila (daughter) --> Plan to follow up with Neurologist Dr. Henriquez and Neuro sx I have expla ined to daughter Sheila and she agrees with plan of care and Vascular for possible Endarterectomy outpatient work up 2. TIA --> MRI done does not show acute CVA --> MRA head and neck reviewed ordered CTA neck based on findings. --> continue ASA 81mg po daily --> have discuss with daughter, plan of care was reviewed --> ST, PT, OT 3. History of Craniotomy for subdural hematoma --> was on keppra has been off keppra for 2 yrs. --> EEG pending 4. Possible Underlying Dementia 5. HLD --> cont statin 6. Hyponatremia --> initially 127 could contribute to his confusion as well, now has been improving Thank you for allowing to us to participate in patients care plan of care was discussed with Dr. Alexei Phelps. Jie Aldrich NP, Nidhi NP Sep 18, 2020 10:39
--- NOTE | 2020-09-18 13:53 | NUR ---
NURSE NOTES: Blood pressure elevated,was agitated earlier,rechecked still elevated,apresoline given,restraints applied with orders Dr. Pemberton for safety,closely watched,close to nurses station
--- NOTE | 2020-09-18 15:14 | NUR ---
NURSE NOTES: Patient remove restraints,aggressive 3 nurses helping to keep him on bed,repositioned restraints applied
--- NOTE | 2020-09-18 16:21 | NUR ---
CASE MANAGEMENT: REVIEW 09/18/2020 SI: ACUTE -ONSET APHASIA VS: T 99.3 HR 113 RR 22 B/P 182/85 SATS 98% ON RA LABS: NO LABS TODAY IS: IVF+KCL @ 100/HR ASA PO QD VIT D PO QD PRAVACHOL PO QHS FLOMAX PO QHS : TO STEP DOWN UNIT DCP: PATIENT IS FROM HOME
--- NOTE | 2020-09-18 16:25 | General Progress Note ---
Subjective ROS Limited/Unobtainable: Yes Constitutional: Reports: weakness HEENT: Reports: no symptoms Cardiovascular: Reports: no symptoms Respiratory: Reports: no symptoms Gastrointestinal/Abdominal: Reports: no symptoms Genitourinary: Reports: no symptoms Neurologic/Psychiatric: Reports: pre-existing deficit Endocrine: Reports: no symptoms Hematologic/Lymphatic: Reports: no symptoms Allergies: Coded Allergies: No Known Allergies (Unverified , 09/13/20) All Systems: reviewed and negative except above Subjective No overnight events. Patient remains intermittently confused and agitated. Overall is improving. Denies pain or shortness of breath. No fevers or chills. Objective Last 24 Hour Vital Signs Date Time Temp Pulse Resp B/P (MAP) Pulse Ox O2 Delivery O2 Flow Rate FiO2 09/18/20 13:43 180/86 09/18/20 12:00 Room Air 09/18/20 12:00 99.3 113 22 182/85 (117) 98 09/18/20 11:46 112 09/18/20 08:00 97.3 108 22 146/74 (98) 98 09/18/20 08:00 Room Air 09/18/20 07:46 108 09/18/20 04:00 97.5 105 20 141/69 (93) 99 09/18/20 03:40 112 09/18/20 03:40 Room Air 09/18/20 00:00 Room Air 09/18/20 00:00 97.7 74 20 129/70 (89) 100 09/17/20 20:00 Room Air 09/17/20 20:00 98.1 70 18 136/83 (100) 93 09/17/20 20:00 96 Intake and Output 09/17/20 09/18/20 19:00 07:00 Intake Total 120 ml Output Total 1200 ml 500 ml Balance -1200 ml -380 ml Intake Oral 120 ml Output Urine Total 1200 ml 500 ml # Voids 2 Height (Feet): 6 Weight (Pounds): 160 Objective General Appearance: WD/WN, confused Neck: non-tender, supple Cardiovascular: normal rate, regular rhythm Respiratory/Chest: chest wall non-tender, lungs clear, normal breath sounds, no respiratory distress Abdomen: normal bowel sounds, non tender, soft, no organomegaly Edema: no edema noted Arm (L), no edema noted Arm (R) Neurologic: alert, responsive, disoriented Skin: normal pigmentation, warm/dry Assessment/Plan Problem List: (1) Toxic metabolic encephalopathy ICD Codes: G92 - Toxic encephalopathy SNOMED: 054188583 (2) Hyponatremia ICD Codes: E87.1 - Hypo-osmolality and hyponatremia SNOMED: 14559917 (3) Asthma ICD Codes: J45.909 - Unspecified asthma, uncomplicated SNOMED: 385381354 Status: stable, not improved, unchanged Assessment/Plan: Continue antiplatelet treatment Monitor sodium level replace K as needed PT OT DVT and stress ulcer prophylaxis Statin treatment Discussed with daughter at length. She feels that patient is improved significantly and she is comfortable taking the patient home. States if there are any changes in condition she will bring the patient back. Otherwise we will follow-up in the office next week. Conrado Pemberton MD Sep 18, 2020 16:25
--- NOTE | 2020-09-18 16:32 | NUR ---
CASE MANAGEMENT: NOTE DTR WAS MADE AWARE OF THE DISCHARGE. SHE IS ABLE TO PROVIDE TRANSPORTATION FOR THIS PATIENT. CM S/W DTR ARIELLA WHO IS OPEN TO HOME HEALTH VISITS AT HOME FOR THIS PATIENT. DCP TO SEND REFERRAL TO [facility] FOR REVIEW.
--- NOTE | 2020-09-18 17:15 | NUR ---
NURSE NOTES: Patient for discharge ,i asked Dr. Pemberton what medications to continue at home ,left a message in their office [phone] waiting for return call
--- NOTE | 2020-09-18 19:17 | NUR ---
NURSE HAND-OFF REPORT: Important Events on Shift:N Patient Status: Stable Diet: Puree CANDELARIA Pending Orders: Nnone Pending Results/Labs:none Pending MD notification:none Latest Vital Signs: Temperature 99.0 , Pulse 112 , B/P 165 /85 , Respiratory Rate 20 , O2 SAT 98 , , O2 Flow Rate . Vital Sign Comment: EKG Rhythm: ST ,1st dergree AVB Rhythm change?: N MD Notified?:none MD Response: Latest Porter Fall Score: 35 Fall Risk: Medium Risk Safety Measures: Call light Within Reach, Bed Alarm Zone 2, Side Rails Side Rails x3, Bed position Low and Locked. Fall Precautions: Yellow Socks Yellow Gown Door Sign Patient Fall Education Report given to .DAILY Pierre
--- NOTE | 2020-09-18 19:20 | NUR ---
Received report from DAILY Hills and assumed care of patient.
--- NOTE | 2020-09-18 20:22 | NUR ---
1999: Lungs, heart, and abdomen auscultated and all WNL. Last vital signs at 2014 were as follows: B/P 165/99; HR 110; Axillary Temperature 97.9F, RR 18, O2Sat 99% on RA. L wrist 20g PIV removed intact prior to DC. 2021:Pt discharged from facility under the care of his daughter, Sheila Draper. Pt's daughter brought clean clothes in which the patient was changed into prior to DC. A brief was placed on patient in case of incontinence in private vehicle. Patient had a few articles of clothing with him in his room that was also given to daughter and was all of his belongings that he had onsite. Patient was secured in a seatbelt upon discharge in their private vehicle sitting in the rear passenger seat next to his . Patient stable upon discharge and in no acute distress.
--- NOTE | 2020-09-18 21:27 | Cardiology Progress Note ---
Subjective DATE OF SERVICE: Sep 18, 2020 Discussed with patient's daughter and Dr Pemberton. Patient remains confused with confusion and some agitation, but improving daily. MRA revealed possible significant left and right carotid obstruction at origin. Objective Last 24 Hour Vital Signs Date Time Temp Pulse Resp B/P (MAP) Pulse Ox O2 Delivery O2 Flow Rate FiO2 09/18/20 20:15 97.9 110 18 165/99 (121) 99 09/18/20 17:30 112 20 165/85 (111) 09/18/20 16:00 114 09/18/20 16:00 Room Air 09/18/20 16:00 99.0 114 22 166/83 (110) 98 09/18/20 13:43 180/86 09/18/20 12:00 Room Air 09/18/20 12:00 99.3 113 22 182/85 (117) 98 09/18/20 11:46 112 09/18/20 08:00 97.3 108 22 146/74 (98) 98 09/18/20 08:00 Room Air 09/18/20 07:46 108 09/18/20 04:00 97.5 105 20 141/69 (93) 99 09/18/20 03:40 112 09/18/20 03:40 Room Air 09/18/20 00:00 Room Air 09/18/20 00:00 97.7 74 20 129/70 (89) 100 HEENT: normal ENT inspection RHYTHM: NSR, SB LUNGS: lungs clear bilaterally CARDIAC: normal rate, regular rhythm, normal S1 and S2 ABDOMEN: normal bowel sounds, non tender, soft EXTREMITIES: normal range of motion, No edema, other - aphasia Assessment/Plan Assessment/Plan Possible CVA Hx craniotomy R/O seizure Hyponatremia Vitamin D def Carotid stenosis, bilat Stable for outpatient follow up. Family refuses SNF due to risk of infection. Free water restriction stressed. Carotid endarterectomy at a later date Maintain anti-plt and antilipid rx Giacomo Szymanski MD Sep 18, 2020 21:27
--- NOTE | 2020-09-18 22:44 | Electroencephalogram ---
DATE OF PROCEDURE: 09/17/2020 REQUESTING PHYSICIAN: Conrado Pemberton MD READING PHYSICIAN: Zan Coles MD PROCEDURE PERFORMED: EEG. HISTORY: This EEG was performed on an 80-year-old gentleman with a history of prior left subdural hematoma, status post craniotomy who used to be on antiseizure medicines and was taken off antiseizure medicines 2 years ago. The patient has been exhibiting some altered mental state and thus this EEG was performed to evaluate the patient for ongoing ictal or interictal phenomena. TECHNICAL NOTE: This EEG was performed on a [employer] with electrodes placed on the scalp according to the international 10-20 system. Kdaft-ov-jxeen and srbas-nm-yip montages were used. The EEG was technically satisfactory and was performed in the awake state. OBSERVATIONS: In the reportedly awake state, the background activity consisted of 6 to 7 hertz theta activity over the right hemisphere and 5 to 6 hertz theta activity over the left hemisphere. No epileptiform discharges were seen. IMPRESSION: This is an abnormal EEG characterized by: 1. Slowing of the background in the 6 to 7 hertz theta range over the right hemisphere. 2. Slowing of the background in the 5 to 6 hertz theta range over the left hemisphere in the reportedly awake state. COMMENT: The study is consistent with: 1. An encephalopathy of a mild degree. 2. Left greater than right hemispheric dysfunction. Please note that no interictal discharges were seen on this EEG. Zan Coles M.D. DR: JOHNATHAN JOB#: [id number] CC:
--- NOTE | 2020-09-19 11:22 | Discharge Summary ---
Discharge Summary Discharge Summary _ Date of admission: 09/13/2020 Date of discharge: 09/18/[address] Pemberton History of Present Illness and Brief Hospital Course Mr. Draper is an 80-year-old male with past medical history of craniotomy due to subdural hematoma, who was seen by Dr. Pemberton in his office for a routine follow-up and was without any acute neurologic deficits. Later that afternoon, his daughter and noted him to have progressive speech deficits described as expressive. They called 911 and took the patient to [place] emergency room and had a CT scan of the brain that revealed diffuse white matter disease, but no acute process. Patient was transferred to [facility] for continued work-up and further care. Brain MRI was negative for acute intracranial bleed, mass-effect or contrast enhancing lesion. Carotid duplex showed less than 50% diameter stenosis bilaterally. MRA of head showed no evidence of intracranial large vessel occlusion, significant stenosis, or aneurysm. Neck MRA showed stenosis at the origin of bilateral ICA, likely related to atherosclerotic plaque. The follow- up CT angiogram of neck revealed narrowing of the right ICA by 50%, and the left ICA greater than 70%. Chest x-ray was notable for small bilateral pleural effusions with mild vascular congestion. Patient and his daughter were advised to follow-up with a neurologist, Dr. Henriquez as an outpatient. They agreed with the plan of care for possible enda rterectomy outpatient work-up. Family refused [facility] due to concern of infection. Patient was medically stable for discharge and was discharged home on 09/18/2020. Consultants: Cardiology Dr. Szymanski Vascular surgery Dr. Roman Neurology Jie Aldrich NP Discharge Condition Improved and stable Final diagnoses Possible CVA History of craniotomy for subdural hematoma Hyponatremia Vitamin D deficiency Carotid stenosis, bilateral TIA Hyperlipidemia Asthma I have been assigned to dictate discharge summary for this account. I was not involved in the patient's management Alexandru Noland Sep 19, 2020 11:22
== END 2020-09-18 20:20 | disposition home or self-care (01) | DRG 64 ==
LOC: 2W 01:55
DX: I63.9 Cerebral infarction, unspecified (principal); G92 Toxic encephalopathy; E87.1 Hypo-osmolality and hyponatremia; I65.22 Occlusion and stenosis of left carotid artery; R47.01 Aphasia; E87.8 Other disorders of electrolyte and fluid balance, not elsewhere classified; I25.10 Atherosclerotic heart disease of native coronary artery without angina pectoris; I11.9 Hypertensive heart disease without heart failure; M19.90 Unspecified osteoarthritis, unspecified site; E55.9 Vitamin D deficiency, unspecified; E78.5 Hyperlipidemia, unspecified; J45.909 Unspecified asthma, uncomplicated
CPT/HCPCS: 36415; 70498; 70544; 70548; 70553; 71045; 80048; 80053; 81003; 83935; 84300; 84443; 85025; 87086; 93306; 93880; 95819; A9585